=== PATIENT | female | born 1975 | race Caucasian/White ===

== ENCOUNTER 2023-09-28 16:28 | Emergency (ER) | payer OTHER, SELFPAY ==
--- NOTE | ~2023-09-28 | XR_ITS ---
EXAMINATION: XR chest 2V Exam Date/Time: 09/28/2023 17:00 [employer] HISTORY: COUGH X 6 DAYS Comparison: None. RESULT: Lines, tubes, and devices: Cholecystectomy clips. Lungs and pleura: Streaky bibasilar and scattered reticulonodular opacities. No focal consolidation, pleural effusion, or pneumothorax. Cardiomediastinal silhouette: Stable. Other: No acute osseous or upper abdominal finding. IMPRESSION: Pulmonary opacities may represent respiratory bronchiolitis in the appropriate clinical context. Reviewed, dictated and finalized at location K[employer]
[2023-09-28 16:37] VITALS: BP 124/85; PULSE 95; RESP 16; TEMP 37.1; O2SAT 97
--- NOTE | 2023-09-28 16:51 | ED.URI ---
HPI - URI/Sore Throat General Chief Complaint: Upper Respiratory Infection Stated Complaint: bodyaches,cough,throat hurts Time Seen by Provider: 09/28/23 16:51 Source: patient, RN notes reviewed and old records reviewed Mode of arrival: ambulatory Limitations: no limitations History of Present Illness HPI Narrative: 48-year-old female presents to the [facility] with generalized body aches, cough and sore throat since Monday. Had contacted primary care provider was called in [facility] on Monday. Reports exposure to flu a. States the Tamiflu has not made her better yet, attempted to educate the Tamiflu does not make you better, it reduces symptoms by 6-12 hours only. Related Data Home Medications Medication Instructions Recorded Confirmed benzonatate 100 mg capsule 100 mg PO DAILY 09/28/23 09/28/23 hydrochlorothiazide 12.5 mg tablet 12.5 mg PO DAILY 09/28/23 09/28/23 lisinopril 10 mg tablet 10 mg PO DAILY 09/28/23 09/28/23 omeprazole 40 mg capsule,delayed 40 mg PO DAILY 09/28/23 09/28/23 release oseltamivir 75 mg capsule 75 mg PO BID 09/28/23 09/28/23 ropinirole 0.5 mg tablet 0.5 mg PO HS 09/28/23 09/28/23 sumatriptan succinate 100 mg tablet 100 mg PO PRN PRN Migraine Headache 09/28/23 09/28/23 venlafaxine 150 mg 150 mg PO DAILY 09/28/23 09/28/23 capsule,extended release 24 hr Allergies Allergy/AdvReac Type Severity Reaction Status Date / Time No Known Allergies Allergy Unverified 09/02/12 15:35 Review of Systems Review of Systems: All systems reviewed & are unremarkable except as noted in HPI and below Constitutional: Constitutional: Reports as per HPI Eyes: Eyes: Reports no additional eye complaints ENT: Reports as per HPI Cardiovascular: Cardiovascular: Reports no additional cardiovascular complaints, Denies chest pain and Denies dyspnea Respiratory: Respiratory: Reports no additional respiratory complaints, Denies chest congestion, Denies cough and Denies dyspnea Gastrointestinal: Gastrointestinal: Reports no additional gastrointestinal complaints, Denies abdominal pain, Denies nausea and Denies vomiting Musculoskeletal: Musculoskeletal: Reports no additional musculoskeletal complaints Integumentary/Breasts: Skin/Breast: Reports system reviewed and no additional complaints, except as docu Neurologic: Reports system reviewed and no additional complaints, except as documented Psychiatric: Psychiatric: Reports no additional psychiatric complaints Allergic/Immunologic: Allergic/Immunologic: Reports no additional allergic/immunologic complaints PMFSH Comments At the time of my signature, I reviewed and agree with the nursing past medical, surgical, social, and family history. There is no relevant family history pertinent to the patient complaint. Exam Const: General: cooperative, healthy appearing, comfortable, no acute distress, well developed, alert and well nourished Nutritional Appearance: well nourished Orientation/consciousness: patient oriented x3 Limitations: no limitations HENMT: Head: normal to inspection Ears: hearing grossly normal bilaterally, external ears normal, TM's normal bilaterally, EAC's normal, mastoids normal and no periauricular adenopathy Face/Nose/Sinus: Normal external nose present, Normal nares present, Normal nasal mucous membranes and turbinates present, normal facial exam and face symmetric Face and sinus: normal facial exam and face symmetric Mouth: Yes Normal oral and palatal mucosa present, Yes lip normal, Yes tongue normal and Yes moist mucous membranes Throat: posterior oropharynx normal, uvula midline and postnasal drainage Eyes: General: appearance normal, both eyes and all related structures Alignment and Position: alignment normal Periorbital: periorbital findings normal Pupils: Equal, round and reactive pupils present EOM: EOMs intact bilaterally Neck: Neck: normal visual inspection, full ROM, no lymphadenopathy and no meningeal signs Chest: Chest palpation
== END 2023-09-28 17:38 | disposition home or self-care (01) ==
PROVIDERS: Emergency Provider Nurse Practitioner; PCP Physician Assistant
DX: J40 Bronchitis, not specified as acute or chronic (principal); Z79.899 Other long term (current) drug therapy
CPT/HCPCS: 71046; 87081; 87880; 99213; G0463

== ENCOUNTER 2023-10-06 13:12 | Emergency (ER) | payer OTHER, SELFPAY ==
[2023-10-06 13:59] VITALS: BP 142/106; PULSE 101; RESP 16; TEMP 37.7; O2SAT 97
[2023-10-06 14:01] VITALS: BP 142/106; PULSE 101; RESP 16; TEMP 37.7; O2SAT 97
--- NOTE | 2023-10-06 15:02 | ED.FEMALEGU ---
HPI - Female Genitourinary General Chief complaint: Urogenital-Female Stated complaint: Urinary issue Source: patient and RN notes reviewed Mode of arrival: ambulatory Limitations: no limitations History of Present Illness HPI Narrative: 48-year-old female presented for complaint of urinary urgency and frequency for over 1 week. She states at the onset of symptoms are PCP advised her to get a urine test but symptoms improved. She states now she has some low back pain and the urgency is worsening. She is not taking anything [id number] for symptoms. Related Data Home Medications Medication Instructions Recorded Confirmed benzonatate 100 mg capsule 100 mg PO DAILY 09/28/23 10/06/23 hydrochlorothiazide 12.5 mg tablet 12.5 mg PO DAILY 09/28/23 10/06/23 lisinopril 10 mg tablet 10 mg PO DAILY 09/28/23 10/06/23 omeprazole 40 mg capsule,delayed 40 mg PO DAILY 09/28/23 10/06/23 release oseltamivir 75 mg capsule 75 mg PO BID 09/28/23 10/06/23 ropinirole 0.5 mg tablet 0.5 mg PO HS 09/28/23 10/06/23 sumatriptan succinate 100 mg tablet 100 mg PO PRN PRN Migraine Headache 09/28/23 10/06/23 venlafaxine 150 mg 150 mg PO DAILY 09/28/23 10/06/23 capsule,extended release 24 hr Allergies Allergy/AdvReac Type Severity Reaction Status Date / Time No Known Allergies Allergy Verified 10/06/23 13:58 Review of Systems Review of Systems: CONSTITUTIONAL: Denies body aches, fever, chills, or sweats. CARDIOVASCULAR: Denies chest pain, palpitations, or edema. RESPIRATORY: Denies cough or dyspnea. GASTROINTESTINAL: Denies abdominal pain, nausea, vomiting, or diarrhea. GENITOURINARY: Reports dysuria, frequency, urgency, denies hematuria, flank pain SKIN: Denies rash, itching, or wounds. MUSCULOSKELETAL: Denies myalgia. [facility] Past Medical History Medical History (Updated 10/06/23 @ 16:03 by Coty Rosenthal, CHANDRAKANT) No pertinent past medical history Comments At time of signature, I have reviewed and agree with nursing past medical, surgical, social and family history unless otherwise noted. Please see nursing chart for further information. There is no relevant family history pertinent to the presenting complaint Exam Narrative: GENERAL: Well-appearing and in no acute distress. ENT: Mucous membranes pink and moist. NECK: Normal AROM. Supple. CHEST: No respiratory distress. Clear to auscultation. HEART: Regular rate and rhythm. ABDOMEN: Soft, nondistended, normal active bowel sounds. mild left lower quadrant tenderness, Mild left CVA tenderness SKIN: Warm, dry, no rash. NEURO: No focal deficits. Alert and oriented x3. Gait steady. PSYCH: Normal affect. Course Course Emergency Course: Patient is aware of diagnosis, understands and agrees to treatment plan. Anticipatory guidance given. Patient agrees to follow-up as directed and is aware of reasons to seek care at the emergency department. Portions of this record may have been created with voice recognition software Level of Care: Express Care Visit Vital Signs Vital signs: Vital Signs Temperature 99.8 F H 10/06/23 13:59 Pulse Rate 101 H 10/06/23 13:59 Respiratory Rate 16 10/06/23 13:59 Blood Pressure 142/106 H 10/06/23 13:59 Pulse Oximetry 97 10/06/23 13:59 Oxygen Delivery Room Air 10/06/23 13:59 Temperature 99.8 F H 10/06/23 14:01 Pulse Rate 101 H 10/06/23 14:01 Respiratory Rate 16 10/06/23 14:01 Blood Pressure 142/106 H 10/06/23 14:01 Pulse Oximetry 97 10/06/23 14:01 Oxygen Delivery Room Air 10/06/23 14:01 Reviewed MDM - Female Genitourinary MDM Narrative Medical decision making narrative: Discussed physical exam findings and urine results. Advised supportive measures and signs/symptoms to go to the ER. Pt is appropriate for outpt treatment and f/u. Differential Diagnosis Differential diagnosis: Likely urinary tract infection, cystitis and other ( renal stone, pyelonephritis) Lab Data Labs:
== END 2023-10-06 15:10 | disposition home or self-care (01) ==
PROVIDERS: Emergency Provider Nurse Practitioner Family; PCP Physician Assistant
DX: N39.0 Urinary tract infection, site not specified (principal); B96.20 Unspecified Escherichia coli [E. coli] as the cause of diseases classified elsewhere; I10 Essential (primary) hypertension; K21.9 Gastro-esophageal reflux disease without esophagitis; G25.81 Restless legs syndrome
CPT/HCPCS: 81003; 87077; 87086; 87186; 99213; G0463

== ENCOUNTER 2023-10-25 16:56 | Emergency (ER) | payer OTHER, SELFPAY ==
[2023-10-25 17:09] VITALS: BP 133/103; PULSE 98; RESP 16; TEMP 37.5; O2SAT 99
--- NOTE | 2023-10-25 17:45 | ED.FEMALEGU ---
HPI - Female Genitourinary General Chief complaint: Urogenital-Female Stated complaint: urinary issue Time Seen by Provider: 10/25/23 17:45 Source: patient Mode of arrival: ambulatory Limitations: no limitations History of Present Illness HPI Narrative: 48-year-old female presents with complaint of urinary frequency, urgency starting last night. Reports that urine is cloudy today. Afebrile. Denies abdominal and back pain. Recently treated for urinary tract infection with Macrobid. States that symptoms had resolved. All systems reviewed and negative except as noted above. Related Data Home Medications Medication Instructions Recorded Confirmed benzonatate 100 mg capsule 100 mg PO DAILY 09/28/23 10/25/23 hydrochlorothiazide 12.5 mg tablet 12.5 mg PO DAILY 09/28/23 10/25/23 lisinopril 10 mg tablet 10 mg PO DAILY 09/28/23 10/25/23 omeprazole 40 mg capsule,delayed 40 mg PO DAILY 09/28/23 10/25/23 release oseltamivir 75 mg capsule 75 mg PO BID 09/28/23 10/25/23 ropinirole 0.5 mg tablet 0.5 mg PO HS 09/28/23 10/25/23 sumatriptan succinate 100 mg tablet 100 mg PO PRN PRN Migraine Headache 09/28/23 10/25/23 venlafaxine 150 mg 150 mg PO DAILY 09/28/23 10/25/23 capsule,extended release 24 hr Allergies Allergy/AdvReac Type Severity Reaction Status Date / Time No Known Allergies Allergy Verified 10/25/23 17:00 Review of Systems Review of Systems: CONSTITUTIONAL: Denies fever, chills, or sweats. EYES: Denies visual changes, redness, or discharge. ENT: Denies rhinorrhea, congestion, sore throat, or otalgia. CARDIOVASCULAR: Denies chest pain, palpitations, or edema. RESPIRATORY: Denies cough or dyspnea. GASTROINTESTINAL: Denies abdominal pain, nausea, vomiting, or diarrhea. GENITOURINARY: Denies dysuria or hematuria. Reports urinary frequency and urgency. SKIN: Denies rash or itching. MUSCULOSKELETAL: Denies back pain, joint pain, or myalgia. NEUROLOGIC: Denies headache, numbness, or weakness. PSYCHIATRIC: Denies anxiety or depression. All other systems reviewed are negative, except as documented in HPI. PMFSH Past Medical History Medical History (Updated 10/25/23 @ 17:52 by Luann Fatima NP) No pertinent past medical history Comments At time of signature, agree with nursing past medical, surgical, social and family history. There is no relevant family history pertinent to the presenting complaint. Exam Narrative: GENERAL: This is a well-nourished, well-developed patient, in no apparent distress. HEAD: normocephalic, atraumatic. EYES: PERRL. Sclera clear/white. Vision is grossly intact. EARS: External ears normal NOSE: External nose normal NECK: Neck supple, non-tender without lymphadenopathy, masses or thyromegaly. CARDIOVASCULAR: Regular rate and rhythm without murmurs, gallops, or rubs. RESPIRATORY: Clear to auscultation. Breath sounds equal bilaterally. No wheezes, rales, or rhonchi. SKIN: warm, Dry, intact with no suspicious lesions or rash, good texture and turgor. NEURO: awake, alert, and oriented to person, place and time. There were no obvious focal neurologic abnormalities. EXTREMITIES: No joint tenderness, effusion, or edema noted. Course Course Level of Care: Express Care Visit Vital Signs Vital signs: Vital Signs Temperature 37.5 C 10/25/23 17:09 Pulse Rate 98 10/25/23 17:09 Respiratory Rate 16 10/25/23 17:09 Blood Pressure 133/103 H 10/25/23 17:09 Pulse Oximetry 99 10/25/23 17:09 Oxygen Delivery Room Air 10/25/23 17:09 Temperature 37.5 C 10/25/23 17:09 Pulse Rate 98 10/25/23 17:09 Respiratory Rate 16 10/25/23 17:09 Blood Pressure 133/103 H 10/25/23 17:09 Pulse Oximetry 99 10/25/23 17:09 Oxygen Delivery Room Air 10/25/23 17:09 Reviewed MDM - Female Genitourinary MDM Narrative Medical decision making narrative: At time of signature, agree with nursing past medical, surgical, social and family history. Th
== END 2023-10-25 18:01 | disposition home or self-care (01) ==
PROVIDERS: Emergency Provider Nurse Practitioner Family; PCP Physician Assistant
DX: N39.0 Urinary tract infection, site not specified (principal); B96.20 Unspecified Escherichia coli [E. coli] as the cause of diseases classified elsewhere
CPT/HCPCS: 81003; 87077; 87086; 87186; 99213; G0463